=== PATIENT | female | born 1960 | race Two or more races ===

== ENCOUNTER 2020-11-25 14:42 | Emergency (ER) | payer OTHER ==
[~2020-11-25] VITALS: Ht 162.6 cm; Wt 70.3 kg
[2020-11-25] MEDS ORDERED: GLIPIZIDE XL5 MG (15:40)
[2020-11-25] MEDS ORDERED: METFORMIN HCL500 M3 (15:40)
[2020-11-25] MEDS ORDERED: ATACAND16 MG (15:41)
[2020-11-25] MEDS ORDERED: GABAPENTIN100 M2 (15:41)
[2020-11-25] MEDS ORDERED: SYNTHROID75 MCG (15:41)
[2020-11-25] MEDS ORDERED: ATORVASTATIN CA20 MG (15:41)
[2020-11-25] MEDS ORDERED: PAROXETINE HCL10 MG (15:42)
[2020-11-25] MEDS ORDERED: OMEPRAZOLE MAGN20 MG (15:42)
== END 2020-11-25 21:15 | disposition home or self-care (01) ==
LOC: ER 14:42
DX: H54.61 Unqualified visual loss, right eye, normal vision left eye (principal); E11.65 Type 2 diabetes mellitus with hyperglycemia; Z79.4 Long term (current) use of insulin